=== PATIENT | female | born 1970 | race Caucasian/White ===

== ENCOUNTER 2017-06-28 09:33 | Emergency (ER) | payer BC, OTHER ==
[~2017-06-28] VITALS: Ht 157.5 cm; Wt 53.5 kg
[2017-06-28 09:38] VITALS: Ht 157.5 cm; Wt 53.5 kg
[2017-06-28] MEDS ORDERED: SOD CHLORIDE 0.9% 1,000 ML IV STA (10:20)
[2017-06-28] MEDS ORDERED: ONDANSETRON 4 MG INJ IV STA (10:20)
--- NOTE | 2017-06-28 10:39 | ERD ---
ER Documentation Chief Complaint Date/Time DATE: 06/28/17 TIME: 10:35 Chief Complaint Complains of feeling anxious. and dehydrated HPI This is a 46-year-old female presents to the ER with multiple complaints. Patient states that last night she had 2 alcoholic drinks, and this morning she feels very dehydrated. Patient had one episode of nonbilious nonbloody vomiting and one episode of diarrhea this morning. Patient complains of pelvic pain which she has had over the last few weeks. She had a hysterectomy, however her cervix and ovaries were conserved, and is worried because her OB could not find her cervix at her last visit. She denies any vaginal discharge. She denies any urinary frequency or dysuria. She denies any hematuria. Patient also complains of right upper quadrant pain which has been intermittent and severe when it occurs. It is nonradiating. Patient denies any fevers or chills. She denies any chest pain or shortness of breath. Patient states she has been very anxious lately as her father 2 weeks ago. Patient denies any suicidal or homicidal ideations. ROS 12 point review of systems was done, all negative except per HPI. Medications Home Meds Active Scripts Ondansetron (Ondansetron Odt) 4 Mg Tab.rapdis, 4 MG PO Q6H Y for NAUSEA AND/OR VOMITING, #10 TAB Prov:CHELI EARL 06/28/17 Ibuprofen* (Motrin*) 600 Mg Tab, 600 MG PO Q6, #30 TAB Prov:CHELI EARL 06/28/17 Allergies Allergies: Coded Allergies: levofloxacin (Verified Allergy, Intermediate, 06/28/17) PMhx/Soc History of Surgery: Yes (Hysterectomy) Anesthesia Reaction: No Hx Neurological Disorder: No Hx Respiratory Disorders: No Hx Cardiac Disorders: No Hx Psychiatric Problems: No Hx Miscellaneous Medical Probl: No Hx Alcohol Use: Yes Hx Substance Use: No Hx Tobacco Use: No Physical Exam Vitals Vital Signs Date Time Temp Pulse Resp B/P Pulse Ox O2 Delivery O2 Flow Rate FiO2 06/28/17 09:38 98.3 82 20 145/75 100 Physical Exam GENERAL: The patient is well developed and appropriate for usual state of health , in no apparent distress. HEENT: Atraumatic. CHEST: Clear to auscultation bilaterally. There are no rales, wheezes or rhonchi. HEART: Regular rate and rhythm. No murmurs, clicks, rubs or gallops. ABDOMEN: Soft, nontender and nondistended. Good bowel sounds. No rebound or guarding. No gross peritonitis. No gross organomegaly or masses. No Peoples sign or McBurney point tenderness. BACK: No midline or flank tenderness. NEURO: Alert and oriented. SKIN: The skin is warm and dry. Result Diagram: 06/28/17 1102 06/28/17 1102 Results 24 hrs Laboratory Tests Test 06/28/17 11:02 06/28/17 11:50 White Blood Count 6.710^3/ul Red Blood Count 5.0110^6/ul Hemoglobin 15.2g/dl Hematocrit 44.3% Mean Corpuscular Volume 88.4fl Mean Corpuscular Hemoglobin 30.3pg Mean Corpuscular Hemoglobin Concent 34.3g/dl Red Cell Distribution Width 12.8% Platelet Count 74999^3/UL Mean Platelet Volume 10.9fl Neutrophils % 71.0% Lymphocytes % 22.1% Monocytes % 6.1% Eosinophils % 0.4% Basophils % 0.3% Nucleated Red Blood Cells % 0.0/100WBC Neutrophils # (Manual) 510^3/ul Lymphocytes # 1.510^3/ul Monocytes # 0.410^3/ul Eosinophils # 0.010^3/ul Basophils # 0.010^3/ul Nucleated Red Blood Cells # 0.010^3/ul Sodium Level 142mmol/L Potassium Level 3.7mmol/L Chloride Level 99mmol/L Carbon Dioxide Level 29mmol/L Anion Gap 18 Blood Urea Nitrogen 15mg/dl Creatinine 0.87mg/dl Glucose Level 94mg/dl Calcium Level 9.9mg/dl Total Bilirubin 0.6mg/dl Direct Bilirubin 0.00mg/dl Indirect Bilirubin 0.6mg/dl Aspartate Amino Transf (AST/SGOT) 23IU/L Alanine Aminotransferase (ALT/SGPT) 28IU/L Alkaline Phosphatase 55IU/L Total Protein 8.4g/dl Albumin 4.9g/dl Globulin 3.50g/dl Albumin/Globulin Ratio 1.40 Lipase 139U/L Urine Color COLORLESS Urine Clarity CLEAR Urine pH 7.0 Urine Specific [place] 1.002 Urine Ketones TRACEmg/dL Urine Nitrite NEGATIVEmg/dL Urine Bilirubin NEGATIVEmg/dL Urine Urobilinogen NEGATIVEmg/dL Urine Leukocyte Esterase NEGATIVELeu/ul Urine Hemoglobin NEGATIVEmg/dL Urine Glucose NEGATIVEmg/dL Urine Total Protein NEGATIVEmg/dl Current Medications Medications (Trade) Dose Ordered Sig/Guillermo Route PRN Reason Start Time Stop Time Status Last Admin Dose Admin Sodium Chloride (NS) 1,000 ml @ 1,000 mls/hr Q1H STAT IV 06/28/17 10:20 06/28/17 11:19 DC 06/28/17 11:08 Ondansetron HCl (Zofran Inj) 4 mg ONCE STAT IV 06/28/17 10:20 06/28/17 10:22 DC CLINICAL INDICATION: Abdominal pain. TECHNIQUE: Multiple real-time longitudinal and transverse images of the right upper quadrant of the abdomen were acquired utilizing a curved array transducer. Images were reviewed on a high-resolution PACS workstation. COMPARISON: None FINDINGS: The liver is normal in size and echogenicity without focal mass or intrahepatic biliary dilatation. The gallbladder is normal. There is no pericholecystic fluid or gallbladder wall thickening or gallstones. The sonographic Peoples sign is negative. No intra or extrahepatic biliary dilatation is seen. The common bile duct measures 3.9 mm in maximal dimension. The visualized portions of the pancreas are unremarkable with obscuration of the tail of the pancreas. No free fluid is identified. The right kidney measures 9.5 cm in length. There is mild calyceal pelvic dilatation. There is normal echogenicity within the right kidney. There is no perinephric fluid collection. No mass or calculus is seen. IMPRESSION: 1. Mild right renal calyceal pelvic dilatation. Otherwise unremarkable right upper quadrant ultrasound. RPTAT: HH .Vlad Sage MD, MD Date Time Electronically viewed and signed by .Vlad Sage MD, MD on 06/28/2017 11: 04 .N/ CC: CHELI EARL [place] [id number] Radiology Main Line: [phone] DIAGNOSTIC IMAGING REPORT Patient: DAVID CASTRO : 1970 Age: 46 Sex: F MR #: [id number] DOS: 06/28/17 0000 Ordering MD: CHELI EARL PA-C Location: [facility] Room/Bed: PROCEDURE: US Pelvis. CLINICAL INDICATION: Abdominal pain TECHNIQUE: Multiple sonographic images of the pelvis were obtained utilizing a transabdominal and endovaginal technique. The images were reviewed on a PACS workstation. COMPARISON: None available FINDINGS: Uterus: Surgically absent Cervix: No abnormalities of significance are seen. Right ovary / adnexa: Normal in size estimated at 2.8 x 1.2 x 1.8 cm. No evidence for masses, normal blood flow on Doppler interrogation. Left ovary/adnexa: Normal in size estimated at 3.0 x 1.9 x 2.3 cm. No evidence for solid masses, normal blood flow on Doppler interrogation. A 1.3 cm follicle is present in the left ovary. Cul-de-sac: No evidence of free fluid. RPTAT: HSM IMPRESSION: 1. Status post hysterectomy. 2. Bilateral ovaries are unremarkable. .Vance Borjas MD, MD Date Time Electronically viewed and signed by .Vance Borjas MD, MD on 06/28/2017 11:14 .M/ CC: CHELI EARL Procedures/MDM Differential Diagnosis: GERD, gastritis, peptic ulcer disease, pancreatitis, cholecystitis, choledocholithiasis, biliary colic, cholangitis, [id number] , ACS/VA, Pnuemonia. Etiology of patient's right upper quadrant pain is unknown however suspicion for cholecystitis, choledocholithiasis, cholangitis is low. Patient is afebrile and extremely well-appearing. Patient does have nausea vomiting and diarrhea this could be viral gastroenteritis. Patient however does not have significant electrolyte abnormalities to suggest severe dehydration. There is no evidence of leukocytosis to suggest systemic infection. In regards to patient's pelvic pain there is no evidence of ovarian torsion, I doubt tubo-ovarian abscess or intra-abdominal abscess as patient is afebrile and well-appearing with a normal physical examination. Patient is experiencing anxiety secondary to the of her father, however she does not display any signs or symptoms of suicidal ideations. Patient will be sent home with Zofran and with ibuprofen. She is to follow-up with her primary care doctor within 1-2 days return to ER sooner if symptoms worsen. My medical decision making sure with the patient understands and agrees with plan. Departure Diagnosis: Primary Impression: Multiple complaints Condition: Stable CHELI EARL Jun 28, 2017 10:38
--- NOTE | 2017-06-28 11:05 | RADRPT ---
PROCEDURE: US Abdomen (right upper quadrant). CLINICAL INDICATION: Abdominal pain. TECHNIQUE: Multiple real-time longitudinal and transverse images of the right upper quadrant of th e abdomen were acquired utilizing a curved array transducer. Images were reviewed on a high-resoluti on PACS workstation. COMPARISON: None FINDINGS: The liver is normal in size and echogenicity without focal mass or intrahepatic biliary dilatation. The gallbladder is normal. There is no pericholecystic fluid or gallbladder wall thickening or gal lstones. The sonographic Peoples sign is negative. No intra or extrahepatic biliary dilatation is see n. The common bile duct measures 3.9 mm in maximal dimension. The visualized portions of the pancr eas are unremarkable with obscuration of the tail of the pancreas. No free fluid is identified. The right kidney measures 9.5 cm in length. There is mild calyceal pelvic dilatation. There is nor mal echogenicity within the right kidney. There is no perinephric fluid collection. No mass or alfonzo culus is seen. IMPRESSION: 1. Mild right renal calyceal pelvic dilatation. Otherwise unremarkable right upper quadrant ultraso und. RPTAT: HH .Vlad Sage MD, MD Date Time Electronically viewed and signed by .Vlad Sage MD, MD on 06/28/2017 11:04 .N/
[2017-06-28 11:14] LABS: BASOPHILS % 0.3 % (0.0-2.0); EOSINOPHILS % 0.4 % (0.0-7.0); HEMATOCRIT 44.3 % (37.0-47.0); HEMOGLOBIN 15.2 g/dl (12.0-16.0); LYMPHOCYTES # 1.5 10^3/ul (0.8-2.9); LYMPHOCYTES % 22.1 % (15.0-51.0); MEAN CORPUSCULAR HEMOGLOBIN 30.3 pg (29.0-33.0); MEAN CORPUSCULAR HGB CONC 34.3 g/dl (32.0-37.0); MEAN CORPUSCULAR VOLUME 88.4 fl (82.0-101.0); MEAN PLATELET VOLUME 10.9 fl (7.4-10.4); MONOCYTE # 0.4 10^3/ul (0.3-0.9); MONOCYTES % 6.1 % (0.0-11.0); PLATELET COUNT 206 10^3/UL (140-415); RED BLOOD COUNT 5.01 10^6/ul (4.20-5.40); RED CELL DISTRIBUTION WIDTH 12.8 % (11.5-14.5); WHITE BLOOD COUNT 6.7 10^3/ul (4.8-10.8)
--- NOTE | 2017-06-28 11:14 | RADRPT ---
PROCEDURE: US Pelvis. CLINICAL INDICATION: Abdominal pain TECHNIQUE: Multiple sonographic images of the pelvis were obtained utilizing a transabdominal and endovaginal technique. The images were reviewed on a PACS workstation. COMPARISON: None available FINDINGS: Uterus: Surgically absent Cervix: No abnormalities of significance are seen. Right ovary / adnexa: Normal in size estimated at 2.8 x 1.2 x 1.8 cm. No evidence for masses, norm al blood flow on Doppler interrogation. Left ovary/adnexa: Normal in size estimated at 3.0 x 1.9 x 2.3 cm. No evidence for solid masses, no rmal blood flow on Doppler interrogation. A 1.3 cm follicle is present in the left ovary. Cul-de-sac: No evidence of free fluid. RPTAT: HSM IMPRESSION: 1. Status post hysterectomy. 2. Bilateral ovaries are unremarkable. .Vance Borjas MD, Date Time Electronically viewed and signed by .Vance Borjas MD, on 06/28/2017 11:14 .M/
[2017-06-28 11:33] LABS: ALBUMIN 4.9 g/dl (3.3-4.9); ALBUMIN/GLOBULIN RATIO 1.4; BILIRUBIN,INDIRECT 0.6 mg/dl (0-1.1); BILIRUBIN,TOTAL 0.6 mg/dl (0.2-1.3); CALCIUM 9.9 mg/dl (8.4-10.2); CREATININE 0.87 mg/dl (0.44-1.00); POTASSIUM 3.7 mmol/L (3.5-5.1); TOTAL PROTEIN 8.4 g/dl (6.1-8.1)
[2017-06-28 12:26] LABS: ADD UMIC NO; UR ASCORBIC ACID NEGATIVE (NEGATIVE); UR BILIRUBIN (Dip) NEGATIVE (NEGATIVE); UR BLOOD (Dip) NEGATIVE (NEGATIVE); UR CLARITY CLEAR (CLEAR); UR COLOR COLORLESS (YELLOW); UR GLUCOSE (Dip) NEGATIVE (NEGATIVE); UR KETONES (Dip) TRACE mg/dL (NEGATIVE); UR LEUKOCYTE ESTERASE (Dip) NEGATIVE Leu/ul (NEGATIVE); UR NITRITE (Dip) NEGATIVE (NEGATIVE); UR SPECIFIC GRAVITY (Dip) 1.002 (1.003-1.030); UR TOTAL PROTEIN (Dip) NEGATIVE (NEGATIVE); UR UROBILINOGEN (Dip) NEGATIVE (NEGATIVE)
[2017-06-28] MEDS ORDERED: ONDA4TAB14 PO (12:32)
[2017-06-28] MEDS ORDERED: IBUP-1542 PO (12:32)
[2017-06-28 12:53] VITALS: BP 129/71; PULSE 76; RESP 20; TEMP 98.6
== END 2017-06-28 12:55 | disposition home or self-care (01) ==
LOC: FTE 09:33
DX: E86.0 Dehydration (principal); R10.31 Right lower quadrant pain; R11.10 Vomiting, unspecified; R19.7 Diarrhea, unspecified; R10.2 Pelvic and perineal pain
CPT/HCPCS: 36415; 76705; 76830; 76856; 80053; 81003; 83690; 85025; 99285; J7030; J2405